=== PATIENT | female | born 1960 | race African-American/Black ===

== ENCOUNTER 2017-04-17 06:44 | Inpatient (IN) | payer OTHER ==
[2017-04-15 11:51] VITALS: BMI 35.1
[2017-04-17] MEDS: CELECOXIB 200 MG CAPSULE PO ONE ×2 (06:45→16:23)
[2017-04-17] MEDS: oxyCODONE HCL 10 MG SUSTAINED ACTING TABLET PO ONE ×2 (06:45→16:24)
[2017-04-17] MEDS: GABAPENTIN 300 MG CAPSULE (FP) PO ONE ×2 (06:45→16:24)
[2017-04-17] MEDS ORDERED: VANCOMYCIN 1,000 MG VIAL (RESTRICTED TO ID ONLY) ONE (11:54)
[2017-04-17] MEDS ORDERED: VANCOMYCIN 1,000 MG VIAL (RESTRICTED TO ID ONLY) IVPB ONE (11:56)
[2017-04-17] MEDS ORDERED: ROPIVICAINE 0.2%/MORPH PF/KETOROLAC - 51ML DISP.SYRINGE IA ONE (11:56)
[2017-04-17] MEDS ORDERED: BENZOIN/ALOE VERA/STORAX/TOLU 58 ML BOTTLE ONE (12:32)
[2017-04-17] MEDS ORDERED: MAG HYDROX/AL HYDROX/SIMETH 30 ML UNIT-DOSE CUP PO PRN (13:44)
[2017-04-17] MEDS ORDERED: ONDANSETRON 4 MG/2 ML VIAL IVPUSH PRN (13:44)
[2017-04-17] MEDS ORDERED: MAGNESIUM HYDROX 2400MG/30ML ORAL SUSPENSION 30 ML CUP PO PRN (13:44)
[2017-04-17] MEDS ORDERED: LACTATED RINGERS SOLUTION 1,000 ML IV SCH (13:45)
[2017-04-17] MEDS ORDERED: oxyCODONE HCL 5 MG TABLET PO PRN (13:59)
[2017-04-17] MEDS ORDERED: SODIUM CHLORIDE 1,000 ML IV SCH ×2 (14:00)
[2017-04-17] MEDS ORDERED: ACETAMINOPHEN 325 MG TABLET (FP) PO SCH (14:00)
[2017-04-17 15:15] LABS: HIV 1 & 2 AB NEGATIVE; HIV 1 AGp24 NEGATIVE
[2017-04-17] MEDS: ACETAMINOPHEN 325 MG TABLET (FP) PO SCH (18:00)
[2017-04-17] MEDS: CEFAZOLIN 2 GM/D5W 2 GM/50 ML ML IVPB SCH (18:00)
[2017-04-17] MEDS ORDERED: VANCOMYCIN 1,750 MG in DEXTROSE 5%-WATER - 500 ML IVPB ONE (20:00)
[2017-04-17] MEDS: ASPIRIN 325 MG TABLET PO SCH (21:44)
[2017-04-17] MEDS: FLUoxetine HCL 20 MG CAPSULE (FP) PO SCH (21:45)
[2017-04-17] MEDS: SENNOSIDES/DOCUSATE COMBO (SENNA PLUS) TABLET (UD) PO SCH (21:45)
[2017-04-17] MEDS: GABAPENTIN 300 MG CAPSULE (FP) PO SCH (21:45)
[2017-04-17] MEDS ORDERED: CARVEDILOL 3.125 MG TABLET (FP) PO SCH (22:00)
[2017-04-18] MEDS: ACETAMINOPHEN 325 MG TABLET (FP) PO SCH ×4 (00:10→17:48)
[2017-04-18] MEDS: CEFAZOLIN 2 GM/D5W 2 GM/50 ML ML IVPB SCH (01:21)
[2017-04-18 07:44] LABS: MCH 30.6 pg (25.7-33.7); MCHC 34.1 g/dl (32.0-36.0); MEAN CELL VOLUME 89.6 fl (80-96); MEAN PLT VOLUME 9.9 fl (7.5-11.1); PLATELET COUNT 140 K/MM3 (134-434); RDW 13.2 % (11.6-15.6); WHITE BLOOD COUNT 11.6 K/mm3 (4.0-10.8)
[2017-04-18 07:57] LABS: ANION GAP 6 (8-16); CALCIUM 8.1 mg/dl (8.4-10.2); CO2 24 mmol/L (22-28); CREATININE 0.6 mg/dl (0.6-1.3); GLUCOSE,RANDOM 102 mg/dl (74-106)
--- NOTE | 2017-04-18 08:22 | OP ---
Operative Note - Note: Operative Date: 04/17/17 Pre-Operative Diagnosis: RIGHT HIP OSTEOARTHRITIS Operation: RIGHT TOTAL HIP REPLACEMENT Findings: RIGHT HIP ARTHROFIBROSIS Implants: SOULEYMANE. STEM: ACCOLADE II - SIZE 4, LOW OFFSET. HEAD: BIOLOX 36MM, -5MM. CUP: TRIDENT CLUSTER 62MM. POLY: 36MM NEUTRAL LINER Post-Operative Diagnosis: Same as Pre-op Surgeon: Abdoulaye Berry Outside [employer] Consultant: Michael Berry Anesthesiologist/LICENSED ELECTRICIAN: Gabby Singh Anesthesia: Spinal, Local Specimens Removed: RIGHT FEMORAL HEAD Estimated Blood Loss (mls): 1,400 Fluid Volume Replaced (mls): 2,500 Operative Report Dictated: Yes
--- NOTE | 2017-04-18 08:26 | PN ---
Progress Note (short form) - Note Progress Note: 57F doing well s/p RIGHT total hip replacement POD #1. Pain well controlled. No acute events overnight. Pt. denies overnight history of chest pain, shortness of breath, nausea, vomiting, chills, or sweats. (+) Voiding urine; (+) Flatus; (-) Bowel movement. PE: AAO x 3, NAD. RIGHT Hip: Dressing C/D/I. NVI distally. A/P: 57F doing well s/p RIGHT total hip replacement POD #1. -Pain control. -DVT PPx: Chemical (ASA EC 325 BID) & Mechanical -Incentive spirometry. -PT/OT/Rehab, OOB. -WBAT RLE. -No hip precautions necessary. -f/u medical hospitalist team rec's. -Discharge planning: home with home PT (ambulation, range of motion; no strength training x 6 weeks).
[2017-04-18] MEDS ORDERED: SODIUM CHLORIDE 1,000 ML IV STA (08:30)
--- NOTE | 2017-04-18 08:32 | PN ---
Physical Exam: SUBJECTIVE: Patient seen and examined, patient reports feeling tired, denies any paresthesia to the right lower extremity, reports a dull ache to the right hip. OBJECTIVE: Patient is a 57 y/o female with a past medical history of osteoarthritis, hypertension, depression, iron deficiency anemia, and colon CA. Patient is s/p right THR, local anesthesia, 04/17/17, Dr Berry. Patient had a ESBL of 1400ml, received 2 units of prbc postoperatively. Vital Signs Temperature 98.3 F 04/18/17 05:35 Pulse Rate 72 04/18/17 06:55 Respiratory Rate 17 04/18/17 06:55 Blood Pressure 106/59 04/18/17 06:55 O2 Sat by Pulse Oximetry (%) 100 04/18/17 06:56 GENERAL: The patient is awake, alert, and fully oriented, in no acute distress. HEAD: Normal with no signs of trauma. EYES: PERRL, extraocular movements intact, sclera anicteric, conjunctiva clear. No ptosis. ENT: Ears normal, nares patent, oropharynx clear without exudates, moist mucous membranes. NECK: Trachea midline, full range of motion, supple. LUNGS: Breath sounds equal, clear to auscultation bilaterally, no wheezes, no crackles, no accessory muscle use. HEART: Regular rate and rhythm, S1, S2 without murmur, rub or gallop. ABDOMEN: Soft, nontender, nondistended, normoactive bowel sounds, no guarding, no rebound, no hepatosplenomegaly, no masses. EXTREMITIES: 2+ pulses, warm, well-perfused, no edema. RIGHT LOWER EXTREMITY: aguacel NEUROLOGICAL: Cranial nerves II through XII grossly intact. Normal speech, gait not observed. PSYCH: Normal mood, normal affect. SKIN: Warm, dry, normal turgor, no rashes or lesions noted Laboratory Results - last 24 hr 04/17/17 04/17/17 04/17/17 10:30 11:48 13:32 WBC RBC Hgb Hct MCV MCH MCHC RDW Plt Count MPV Sodium Potassium Chloride Carbon Dioxide Anion Gap BUN Creatinine Random Glucose Calcium Hepatitis C Antibody <0.1 HIV 1&2 Antibody Screen HIV P24 Antigen Blood Type O POSITIVE O POSITIVE Antibody Screen Negative Crossmatch See Detail See Detail 04/17/17 04/18/17 04/18/17 13:32 07:30 07:30 WBC 11.6 H RBC 3.48 L Hgb 10.6 L Hct 31.1 L MCV 89.6 MCH 30.6 MCHC 34.1 RDW 13.2 Plt Count 140 MPV 9.9 Sodium 133 L Potassium 4.4 Chloride 103 Carbon Dioxide 24 Anion Gap 6 L BUN 20 H Creatinine 0.6 Random Glucose 102 Calcium 8.1 L Hepatitis C Antibody HIV 1&2 Antibody Screen Negative HIV P24 Antigen Negative Blood Type Antibody Screen Crossmatch Active Medications Generic Name Dose Route Start Last Admin Trade Name Freq PRN Reason Stop Dose Admin Acetaminophen 650 mg 04/17/17 18:00 04/18/17 06:48 Tylenol - PO 04/20/17 17:59 650 mg Q6H LAMBERT Administration Al Hydroxide/Mg Hydroxide 30 ml 04/17/17 13:44 Mylanta Oral Suspension - PO Q4H PRN DYSPEPSIA Aspirin 325 mg 04/17/17 22:00 04/17/17 21:44 Asa - PO 325 mg BID LAMBERT Administration Bupropion HCl 300 mg 04/18/17 10:00 Wellbutrin Xl - PO DAILY LAMBERT Carvedilol 3.125 mg 04/17/17 22:00 04/17/17 21:45 Coreg - PO 3.125 mg BID LAMBERT Administration Fluoxetine HCl 20 mg 04/17/17 22:00 04/17/17 21:45 Prozac - PO 20 mg BID LAMBERT Administration Gabapentin 300 mg 04/17/17 22:00 04/17/17 21:45 Neurontin - PO 04/20/17 21:59 300 mg BID LAMBERT Administration Sodium Chloride 1,000 mls @ 75 mls/hr 04/17/17 14:00 04/17/17 16:24 Normal Saline - IV Not Given ASDIR LAMBERT Magnesium Hydroxide 30 ml 04/17/17 13:44 Milk Of Magnesia - PO PRN PRN CONSTIPATION Multivitamins/Minerals/Vitamin C 1 tab 04/18/17 10:00 Tab-A-Vit - PO DAILY LAMBERT Ondansetron HCl 4 mg 04/17/17 13:44 Zofran Injection IVPUSH Q6H PRN NAUSEA Oxycodone HCl 5 mg 04/17/17 13:59 Roxicodone - PO Q3H PRN PAIN LEVEL 1-5 Oxycodone HCl 10 mg 04/17/17 13:59 Roxicodone - PO Q3H PRN PAIN LEVEL 6-10 Pantoprazole Sodium 40 mg 04/18/17 10:00 Protonix - PO DAILY LAMBERT Senna/Docusate Sodium 2 tablet 04/17/17 22:00 04/17/17 21:45 Pericolace - PO 2 tablet BID LAMBERT Administration ASSESSMENT/PLAN: 1)ortho right THR, POD #1 - PT - s/p 2 units of PRBC, 04/17/17, esbl 1400ml, repeat hgb 10.6, recheck cbc at 1500 - incentive spirometer - prn pain medication 2) card hypotension - hold coreg, repeat b/p 120/79, after 1 lilter of ns, vital signs q4h - increase iv ns @125ml/hr 3) heme hx of iron deficency anemia - start FE supplements, hgb 10.6 (baseline 12.0) after 2units of prbc 04/17/17 - strict monitoring of cbc, repeat cbc at 1500 4) psych depression - continue home medications f/e/n - regular diet - ivf ppx - asa - protonix - pt - scd dispo: requires in patient admission. Visit type - Case Type Case Type: Scheduled Admission - Emergency Emergency Visit: No - New patient This patient is new to me today: Yes Date on this admission: 04/18/17 - Critical Care Critical Care patient: No
[2017-04-18] MEDS: FERROUS SO4 325 MG TABLET (FP) PO SCH ×3 (09:30→21:26)
[2017-04-18] MEDS: PANTOPRAZOLE 40 MG TABLET (FP) PO SCH (09:38)
[2017-04-18] MEDS: FLUoxetine HCL 20 MG CAPSULE (FP) PO SCH ×2 (09:38→21:26)
[2017-04-18] MEDS: ASPIRIN 325 MG TABLET PO SCH ×2 (09:38→21:26)
[2017-04-18] MEDS: MULTIVITAMINS (DAILY MVI) TABLET (FP) PO SCH (09:38)
[2017-04-18] MEDS: GABAPENTIN 300 MG CAPSULE (FP) PO SCH ×2 (09:38→21:26)
[2017-04-18] MEDS: SENNOSIDES/DOCUSATE COMBO (SENNA PLUS) TABLET (UD) PO SCH ×2 (09:39→21:26)
[2017-04-18] MEDS ORDERED: PATIENT'S OWN MEDICATION (NON-FORMULARY) (Bupropion Hcl [Wellbutrin Xl] 300 MG) PO SCH (10:00)
--- NOTE | 2017-04-18 10:05 | OP ---
DATE OF OPERATION: 04/17/2017 SURGEON: Abdoulaye Berry MD PROCESSING [employer] SUPERVISOR: Michael Berry MD, and assembler surgical garment. PREOPERATIVE DIAGNOSIS: Right hip osteoarthritis. POSTOPERATIVE DIAGNOSES: 1. Right hip osteoarthritis. 2. Right hip arthrofibrosis. SURGICAL PROCEDURE: Right total hip replacement via direct superior approach. ANESTHESIA: Spinal and sedation with paravertebral block. POSITION: Left lateral decubitus. INCISION: Direct superior. ESTIMATED BLOOD LOSS: 1.4 L. INTRAVENOUS FLUIDS: Please see Anesthesia record. SPECIMENS: Right femoral head. DRAINS: None. COMPLICATIONS: None. URINE OUTPUT: None. BACTERIOLOGY: None. TRANSFUSIONS: None intraoperatively. CLOSURE: No. 1 and 2-0 Vicryl sutures with 3-0 Monocryl. INDICATIONS: The patient is a 57-year-old female who presented to outpatient orthopedic clinic with history, clinical, and radiographic findings consistent with end-stage osteoarthritis of the right hip that was significantly impacting her activities of daily living and quality of life. She was indicated for a right total hip replacement in order to facilitate motion and mobilization and to prevent the complications associated with sedentary lifestyle. The patient was identified in the holding area by her arm band. A long discussion was held with the patient in the presence of her family regarding the risks, benefits, and alternatives of the above-named procedure. Risks included but are not limited to pain, bleeding, infection, damage to surrounding structures (including nerves, blood vessels, skin, ligaments, tendons, and bone), wound complications, failure of hardware/implants/reduction, need for further surgery, blood clots, myocardial infarction, pulmonary embolism, anesthesia complications, compartment syndrome, limb loss, limb loss of function, and . Benefits as mentioned above. Alternatives include no surgery. All questions were answered. The patient understood and agreed to the procedure. Informed consent was obtained, witnessed, and verified. The patient's correct operative limb, that is the right lower extremity, was marked, and the patient was taken to the operating room after being seen by the anesthesia and nursing staff. PROCEDURE: The patient was brought into the operating room, placed on the OR table and secured with a safety strap. Consent and the operative site were again verified with the patient and nursing and anesthesia staff. Anesthesia was then administered without complications, including 3 g of IV Ancef and 1 g of IV vancomycin. A timeout was done, led by the attending surgeon. Orthopedic examination revealed markedly limited range of motion of the right hip. She also demonstrated a leg length discrepancy of 1-2 cm, with the right leg being shorter than the left. The patient was positioned in the left lateral decubitus position with all bony prominences well padded. The operative site was then prepped and draped in standard sterile fashion. Timeout was done and the case began. A standard direct superior approach to the right hip was made. After sharp incision was made through the skin, electrocautery was used to incise the subcutaneous tissues and fat down to the layer of the gluteus keyana fascia. Retractors were placed to maintain the exposure. The gluteus keyana fibers were found to be in line with the incision, indicating that we were in the correct orientation with the trajectory of our incision. The gluteus keyana fascia was then incised, and the fibers of gluteus keyana muscle were then split in line with the fibers down to the level of the pericapsular fat. Retractors were then introduced underneath the bellies of the gluteus keyana in order to maintain vision of the pericapsular fat. The pericapsular fat pad was then dissected off the short external rotators and inferior border of gluteus medius muscle using electrocautery. A curved retractor was then used to elevate gluteus medius and expose the underlying piriformis muscle tendon. With the short external rotators in clear visualization, the piriformis and the obturator internus conjoint tendons were then sharply and bluntly dissected off the underlying hip capsule. These muscles were extremely stuck down and difficult to dissect cleanly off the capsule. Once they had been released from the piriformis origin, they were tagged with an Ethibond suture and secured to the posterior apex of the incision, thus forming a sling and protecting the sciatic nerve. Next, a capsulotomy was made in crescentic fashion and the capsule was elevated with the gluteus minimus muscle superiorly using a curved retractor. A Hoffmann elevator was used to develop a plane above the acetabular bone bed for later retractor placement. Next, the labrum was found to be completely calcified around the periphery of the acetabulum. Retractors were used inferiorly underneath the inferior leaflet of the capsule to further expose the femoral head. With clear visualization of the acetabulum, due to arthrofibrosis and severe osteoarthritis, it would have been impossible to have dislocated the femoral head from the acetabulum without fracturing the femur, so an in-situ neck cut of the proximal femur was made and the femoral head was removed using 2 threaded Steinmann pins. Next, retractors were placed anteriorly around the acetabulum to give us full exposure and visualization of the acetabulum. The pulvinar was excised using electrocautery. Next, reamers were introduced into the acetabulum to prepare the bone bed for implantation. Odd reamers were introduced in increasing 2-mm fashion from 47 mm up to 61 mm until a 62-mm trial cup was seated and found to have excellent fixation. Next, a 62-mm Jamie Trident cup was implanted with solid fit and fill of the prepared acetabular bone bed. No screws were needed to maintain fixation of the cup. Next, a 36-mm neutral liner was introduced into the cup. The wounds were copiously irrigated at this point and throughout the case. Next, attention was turned to the proximal femur where a box cut osteotome was used to develop an entrance into the medullary canal. Next, an opening reamer was introduced into the medullary canal and all contents were evacuated using irrigation and suction. Next, Jamie Accolade II system broaches were introduced into the femoral canal in an attempt to match the natural version of the cross-sectional cut of the proximal femur, which turned out to be about 5 degrees of relative anteversion to the orientation of the tibia, which was used as a goniometer. Sequential broaches were introduced using gentle mallet strikes from [address] up to size 4 stems, at which point solid fixation of the size 4 stem was achieved. Trial implants were assembled using a low-offset 132-degree trial neck and negative 5-mm head. We were able to successfully reduce the hip, and the hip was taken through a stable range of motion. Some leg length was restored on the right-hand side, but overall the leg remained slightly short of the contralateral side by approximately 2-3 mm. An intraoperative x-ray was obtained to confirm adequate orientation and sizing of the implants. Next, the hip was dislocated. All trial implants were removed. The wound was copiously irrigated and a final size 4 Gleason Accolade II stem was implanted with a 36-mm diameter, negative 5-mm length Biolox ceramic head. Hip was again reduced, taken through a stable range of motion, and satisfactory implantation was achieved. Next, the wounds were again copiously irrigated, and a primary capsular closure was achieved using No. 1 Vicryl sutures. Lyophilized vancomycin powder was introduced into the wound after the capsule and other soft tissue structures within the wound were injected using an analgesic cocktail. Next, the conjoint tendon sling was released and reattached to the posterosuperior corner of the greater trochanter using Vicryl sutures. Wounds were again copiously irrigated, and the gluteus keyana fascia was closed using No. 1 Vicryl sutures in simple interrupted fashion. Lyophilized vancomycin powder was again introduced into the wound, and the remaining soft tissues were closed using a combination No. 1 and 2-0 Vicryl sutures followed by 3-0 Monocryl suture. A long Aquacel dressing was applied over a bed of Steri-Strips. Hemostasis was assured. The sponge and needle counts were correct at the end of the case, and the attending surgeon was present and scrubbed throughout the case. The patient was then transferred without incident or complications to a hospital bed, where again postop x-ray revealed excellent overall component seating with good alignment of the hip and a reduced right total hip replacement. Patient was then transferred to the recovery room in stable condition, having tolerated the procedure well. Michael Berry MD [id number]
[2017-04-18] MEDS: oxyCODONE HCL 5 MG TABLET PO PRN (15:28)
[2017-04-18 15:50] LABS: WHITE BLOOD COUNT 12.1 K/mm3 (4.0-10.8)
[2017-04-18 15:51] LABS: EOSINOPHIL 0.2 % (0-4.5); MCH 29.2 pg (25.7-33.7); MCHC 32.9 g/dl (32.0-36.0); MEAN CELL VOLUME 88.9 fl (80-96); MEAN PLT VOLUME 10.3 fl (7.5-11.1); NEUTROPHILS 75.6 % (42.8-82.8); PLATELET COUNT 85 K/MM3 (134-434); RDW 13.4 % (11.6-15.6)
[2017-04-18 15:52] LABS: BASOPHIL 1.1 % (0-2.0)
[2017-04-18 22:49] VITALS: PULSE 89
[2017-04-19] MEDS: oxyCODONE HCL 5 MG TABLET PO PRN (02:19)
[2017-04-19] MEDS: ACETAMINOPHEN 325 MG TABLET (FP) PO SCH ×3 (05:27→11:50)
[2017-04-19 06:23] VITALS: BP 119/59; TEMP 99.3
[2017-04-19 07:50] LABS: MCH 29.7 pg (25.7-33.7); MCHC 33.1 g/dl (32.0-36.0); MEAN CELL VOLUME 89.9 fl (80-96); MEAN PLT VOLUME 9.9 fl (7.5-11.1); PLATELET COUNT 109 K/MM3 (134-434); RDW 13.7 % (11.6-15.6); WHITE BLOOD COUNT 9.3 K/mm3 (4.0-10.8)
[2017-04-19] MEDS: FLUoxetine HCL 20 MG CAPSULE (FP) PO SCH (09:12)
[2017-04-19] MEDS: SENNOSIDES/DOCUSATE COMBO (SENNA PLUS) TABLET (UD) PO SCH (09:12)
[2017-04-19] MEDS: GABAPENTIN 300 MG CAPSULE (FP) PO SCH (09:12)
[2017-04-19] MEDS: MULTIVITAMINS (DAILY MVI) TABLET (FP) PO SCH (09:12)
[2017-04-19] MEDS: ASPIRIN 325 MG TABLET PO SCH (09:12)
[2017-04-19] MEDS: FERROUS SO4 325 MG TABLET (FP) PO SCH (09:12)
[2017-04-19] MEDS: PANTOPRAZOLE 40 MG TABLET (FP) PO SCH (09:12)
--- NOTE | 2017-04-19 09:49 | DS ---
Physical Exam: SUBJECTIVE: sitting in bedside chair, reports feeling well, denies any chest pain or shortness of breath, reports pain to the right lateral hip upon movement , denies any parethesia to the extremity. OBJECTIVE:Patient is a 57 y/o female with a past medical history of osteoarthritis, hypertension, depression, iron deficiency anemia, and colon CA. Patient is s/p right THR, local anesthesia, 04/17/17, Dr Berry. Patient had a ESBL of 1400ml, received 2 units of prbc postoperatively. Vital Signs Temperature 99.3 F 04/19/17 06:22 Pulse Rate 89 04/19/17 06:22 Respiratory Rate 19 04/19/17 06:22 Blood Pressure 119/59 04/19/17 06:22 O2 Sat by Pulse Oximetry (%) 95 04/19/17 06:22 PHYSICAL EXAM GENERAL: The patient is awake, alert, and fully oriented, in no acute distress. HEAD: Normal with no signs of trauma. EYES: PERRL, extraocular movements intact, sclera anicteric, conjunctiva clear. No ptosis. ENT: Ears normal, nares patent, oropharynx clear without exudates, moist mucous membranes. NECK: Trachea midline, full range of motion, supple. LUNGS: Breath sounds equal, clear to auscultation bilaterally, no wheezes, no crackles, no accessory muscle use. HEART: Regular rate and rhythm, S1, S2 without murmur, rub or gallop. ABDOMEN: Soft, nontender, nondistended, normoactive bowel sounds, no guarding, no rebound, no hepatosplenomegaly, no masses. EXTREMITIES: 2+ pulses, warm, well-perfused, no edema. RIGHT LOWER EXTREMITY: aguacel dressing intact, less than 3 second cappillary refill, +3 pedal pulse, SCD/JELENA in place NEUROLOGICAL: Cranial nerves II through XII grossly intact. Normal speech, gait not observed. PSYCH: Normal mood, normal affect. SKIN: Warm, dry, normal turgor, no rashes or lesions noted LABS CBC,CMP WBC 9.3 K/mm3 (4.0-10.8) 04/19/17 07:00 RBC 3.48 M/mm3 (3.60-5.2) L 04/19/17 07:00 Hgb 10.4 GM/dl (10.7-15.3) L 04/19/17 07:00 Hct 31.3 % (32.4-45.2) L 04/19/17 07:00 MCV 89.9 fl (80-96) 04/19/17 07:00 MCH 29.7 pg (25.7-33.7) 04/19/17 07:00 MCHC 33.1 g/dl (32.0-36.0) 04/19/17 07:00 RDW 13.7 % (11.6-15.6) 04/19/17 07:00 Plt Count 109 K/MM3 (134-434) L D 04/19/17 07:00 MPV 9.9 fl (7.5-11.1) 04/19/17 07:00 Neutrophils % 75.6 % (42.8-82.8) 04/18/17 15:30 Lymphocytes % 13.0 % (8-40) 04/18/17 15:30 Monocytes % 10.1 % (3.8-10.2) 04/18/17 15:30 Eosinophils % 0.2 % (0-4.5) 04/18/17 15:30 Basophils % 1.1 % (0-2.0) 04/18/17 15:30 Sodium 133 mmol/L (136-145) L 04/18/17 07:30 Potassium 4.4 mmol/L (3.5-5.1) 04/18/17 07:30 Chloride 103 mmol/L (98-107) 04/18/17 07:30 Carbon Dioxide 24 mmol/L (22-28) 04/18/17 07:30 Anion Gap 6 (8-16) L 04/18/17 07:30 BUN 20 mg/dl (7-18) H 04/18/17 07:30 Creatinine 0.6 mg/dl (0.6-1.3) 04/18/17 07:30 Random Glucose 102 mg/dl (74-106) 04/18/17 07:30 Calcium 8.1 mg/dl (8.4-10.2) L 04/18/17 07:30 HOSPITAL COURSE: The patient was admitted to the Med-Surg Unit after an elective right THR. Narcotic and non-narcotic pain management control was achieved with an oral and IV approach. POD #1. Patient received 2 units of PRBC, 04/17/17, esbl 1400ml, repeat hgb 10.6, repeat hgb 10.4 on post op day #2. The patient ambulated with Physical Therapy and will receive home PT post discharge. Patient's coreg was held due to labile b/p postoperatively. She has past medical history of iron deficiency anemia. iron supplements started during hospitalization. She has past medical history of depression, home medications continued throughout admission. Saige-operative IV ABX were administered. DVT prophylaxis was achieved with SCDs and early ambulation. Narcotic scripts [place] [employer] SUPERVISOR #[id number] prior to escibe. The discharge instructions and an oral pain management plan were reviewed with the patient. All questions answered. Above plan discussed with Dr. Berry and agreed. Date of Admission:04/17/17 Date of Discharge: 04/19/17 Minutes to complete discharge: 45 Visit type - Case Type Case Type: Scheduled Admission - Emergency Emergency Visit: No - New patient This patient is new to me today: No - Critical Care Critical Care patient: No
--- NOTE | 2017-04-19 12:17 | PATH ---
Surgical Pathology Report Patient Name: RAUL ALCARAZ Med. Rec. #: [id number] /Age/Gender: 1960 (Age: 57) / F Account: [id number] Location: [facility] MED-SURG Taken: 04/17/2017 Received: 04/17/2017 Reported: 04/19/2017 Physicians: Michael Berry M.D. Specimen(s) Received RIGHT FEMORAL HEAD Clinical History Osteoarthritis right hip Final Diagnosis BONE, RIGHT FEMORAL HEAD, REPLACEMENT: DEGENERATIVE JOINT DISEASE. Electronically Signed John Graf M.D. Gross Description Received in formalin, labeled "right femoral head," is a 4.8 x 4.8 x 3.2 cm. femoral head with 0.5 cm in length portion of femoral neck attached. The margin of resection is smooth. There are multiple areas of eburnation present, measuring up to 3.2 cm in greatest dimension. The remaining articular surface is santiago-yellow and diffusely granular. The underlying trabecular bone is yellow and hard. A enrollment eligibility representative section is submitted in one cassette, following decalcification. 04/18/201704/18/2017
== END 2017-04-19 12:27 | disposition home health service (06) | DRG 470 ==
LOC: FM/S 06:44
PROVIDERS: ADMIT Orthopaedic Surgery Orthopaedic Surgery of the Spine; ATTEND Orthopaedic Surgery Orthopaedic Surgery of the Spine
PROC: 30233H1 Transfusion of Nonautologous Whole Blood into Peripheral Vein, Percutaneous Approach (ICD-10-PCS; 2017-04-17)
PROC: 0SR904Z Replacement of Right Hip Joint with Ceramic on Polyethylene Synthetic Substitute, Open Approach (ICD-10-PCS; principal; 2017-04-17 07:30)
DX: M16.11 Unilateral primary osteoarthritis, right hip (principal); M24.651 Ankylosis, right hip; I10 Essential (primary) hypertension; F32.9 Major depressive disorder, single episode, unspecified; D50.9 Iron deficiency anemia, unspecified; Z85.038 Personal history of other malignant neoplasm of large intestine
CPT/HCPCS: 36415; 36430; 73502-TC-RT; 80048; 85025; 85027; 86803; 86850; 86900; 86901; 86922; 87389; 88304-TC; 88311-TC; 94760; 97116-GP; 97162-GP; P9038; P9058